=== PATIENT | male | born 1970 | race Caucasian/White ===

== ENCOUNTER 2019-11-20 08:17 | Outpatient (CLI) | payer OTHER ==
[~2019-11-20 08:17] MED LIST: ASCO500T8 PO; ATOM25CA PO; CHOL10002 PO; DILT240C77 PO; FLUT9.9S NAS; HYDR-3237 PO; IRBE300T16 PO; MULT-516 PO; PREG100C PO; PROT480P PO; VITA100C8 PO; [UNRECOGNIZED DRUG - OTHER] PO
== END 2019-11-20 23:59 | disposition home or self-care (01) ==
LOC: CFH 08:17
PROVIDERS: ATTEND Orthopaedic Surgery Sports Medicine
DX: M23.8X1 Other internal derangements of right knee (principal); M25.461 Effusion, right knee